=== PATIENT | male | born 1970 | race African-American/Black ===

== ENCOUNTER 2018-01-07 23:33 | Emergency (ER) | payer OTHER ==
[~2018-01-07] VITALS: Ht 177.8 cm; Wt 108.9 kg
[~2018-01-07 23:33] MED LIST: MECLIZINE HCL25 M1 PO; NOHOMEMEDICATIONS
[2018-01-07] MEDS ORDERED: NOHOMEMEDICATIONS (23:56)
[2018-01-08] MEDS ORDERED: IBUPROFEN 600600 M1 PO (02:08)
[2018-01-08] MEDS ORDERED: SENNA-DOCUSATE1 EACH PO (02:08)
[2018-01-08] MEDS ORDERED: NORCO 7.5-3251 EACH PO (02:08)
[2018-01-08 02:47] VITALS: BP 139/76
== END 2018-01-08 02:47 | disposition home or self-care (01) ==
LOC: ER 23:33
DX: S76.112A Strain of left quadriceps muscle, fascia and tendon, initial encounter (principal); W01.0XXA Fall on same level from slipping, tripping and stumbling without subsequent striking against object, initial encounter; Y92.89 Other specified places as the place of occurrence of the external cause; Y93.89 Activity, other specified; Y99.8 Other external cause status

== ENCOUNTER 2021-02-19 19:15 | Emergency (ER) | payer OTHER ==
[~2021-02-19] VITALS: Ht 177.8 cm; Wt 97.1 kg
[~2021-02-19 19:15] MED LIST changes: +IBUPROFEN 600600 M1 PO; +NORCO 7.5-3251 EACH PO; +SENNA-DOCUSATE1 EACH PO
[2021-02-19 20:20] LABS: ABSOLUTE NEUTROPHILS 1.4 thou/uL (1.4-8.2); EOSINOPHILS 1.1 % (0.0-3.0); HEMATOCRIT 41.5 % (42.0-52.0); HEMOGLOBIN 13.9 gm/dL (14.0-18.0); LYMPHOCYTES 36.6 % (24.0-44.0); MCH 28.3 pg (26.0-34.0); MCHC 33.6 g/dL (28.0-37.0); MCV 84.4 fL (80.0-100.0); MONOCYTES 24.1 % (1.0-8.0); PLATELET COUNT 236 thou/uL (150-400); POLYS 37.2 % (36.0-66.0); RBC 4.92 mil/uL (4.50-6.00); RDW 13.1 % (10.5-14.5); WBC 3.9 thou/uL (4.0-11.0)
[2021-02-19 20:30] LABS: ANION GAP 8 mmol/L (7-16); BUN 29 mg/dL (7-18); CALCIUM 9.7 mg/dL (8.5-10.1); CHLORIDE 102 mmol/L (98-107); CO2 26 mmol/L (21-32); CREATININE 1.4 mg/dL (0.7-1.3); GLUCOSE 104 mg/dL (74-106); SODIUM 136 mmol/L (136-145)
[2021-02-19 20:58] LABS: TROPONIN-I <0.06 ng/mL (<0.06)
[2021-02-19 22:36] VITALS: BP 127/84
--- NOTE | 2021-02-20 07:26 | EKG ---
[place] [address] [facility] [place] [address] ELECTROCARDIOGRAM REPORT Name: FRANCISCO HOWARD 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
== END 2021-02-19 22:20 | disposition home or self-care (01) ==
LOC: ER 19:15
PROVIDERS: Emergency Medicine
DX: R07.89 Other chest pain (principal); R06.02 Shortness of breath; T50.Z95A Adverse effect of other vaccines and biological substances, initial encounter; Z79.1 Long term (current) use of non-steroidal anti-inflammatories (NSAID)

== ENCOUNTER 2021-04-04 16:13 | Emergency (ER) | payer OTHER ==
[~2021-04-04] VITALS: Ht 175.3 cm; Wt 98.4 kg
--- NOTE | ~2021-04-04 | EKG ---
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
[2021-04-04 17:19] LABS: CALCIUM 9.4 mg/dL (8.5-10.1)
[2021-04-04 17:23] LABS: ABSOLUTE NEUTROPHILS 2.8 thou/uL (1.4-8.2); BASOPHILS 0.4 % (0.0-2.0); EOSINOPHILS 6.4 % (0.0-3.0); HEMATOCRIT 41.3 % (42.0-52.0); HEMOGLOBIN 13.2 gm/dL (14.0-18.0); LYMPHOCYTES 35.4 % (24.0-44.0); MCH 26.7 pg (26.0-34.0); MCHC 32.1 g/dL (28.0-37.0); MCV 83.4 fL (80.0-100.0); MONOCYTES 15.8 % (1.0-8.0); PLATELET COUNT 279 thou/uL (150-400); RBC 4.96 mil/uL (4.50-6.00); RDW 13.5 % (10.5-14.5); WBC 6.8 thou/uL (4.0-11.0)
[2021-04-04 17:29] LABS: ALBUMIN 3.5 g/dL (3.4-5.0); TOTAL BILIRUBIN 0.5 mg/dL (0.2-1.0); TOTAL PROTEIN 7.4 g/dL (6.4-8.2)
[2021-04-04 18:35] LABS: URINE BILIRUBIN NEGATIVE (Negative); URINE BLOOD NEGATIVE (Negative); URINE CLARITY CLEAR; URINE COLOR YELLOW; URINE GLUCOSE-RANDOM* NEGATIVE (Negative); URINE KETONES NEGATIVE (Negative); URINE LEUKOCYTES-REFLEX NEGATIVE (Negative); URINE NITRITE-REFLEX NEGATIVE (Negative); URINE PROTEIN (DIPSTICK) NEGATIVE (Negative); URINE SPECIFIC GRAVITY >= 1.030 (1.005-1.035); URINE UROBILINOGEN 0.2 E.U./dl (0.2-1.0)
[2021-04-04] MEDS ORDERED: PROPRANOLOL 20M20 M1 PO (21:28)
[2021-04-04] MEDS ORDERED: TAPAZOLE5 MG PO (21:28)
[2021-04-04 21:30] VITALS: BP 135/93
--- NOTE | 2021-04-05 08:17 | EKG ---
[place] [address] [place] [place] [address] ELECTROCARDIOGRAM REPORT Name: FRANCISCO HOWARD [facility] [id number] Admission: 04/04/21 Attend Phys: Discharge: 04/04/21 Date of : 70 Report #: [id number] 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 : 1970 Requested By: Darci Mckee Order Number: [id number] MD: Jewel Velasco Measurements Intervals [place] Rate: 108 P: 51 DC: 125 QRS: 26 QRSD: 95 T: 25 QT: 330 QTc: 443 Interpretive Statements Sinus tachycardia Ventricular premature complex Baseline wander in lead(s) I,III,aVR,aVL Compared to ECG 02/19/2021 20:19:52 Ventricular premature complex(es) now present Sinus rhythm no longer present Electronically Signed On 04-05-2021 8:17:34 CDT by Jewel Velasco [email or web address] <ELECTRONICALLY SIGNED> By: Jewel Velasco MD, [facility] 04/05/21 0817 1618 161 Jewel Velasco MD, [facility] /EPI
== END 2021-04-04 22:06 | disposition home or self-care (01) ==
LOC: ER 16:13
PROVIDERS: Emergency Medicine
DX: E05.90 Thyrotoxicosis, unspecified without thyrotoxic crisis or storm (principal)